=== PATIENT | male | born 1950 | race Caucasian/White ===

== ENCOUNTER 2018-01-15 14:20 | Observation (INO) | payer BC, MEDICARE ==
[2018-01-15 15:08] LABS: #Basophils 0.1 thou/uL (0.0-0.2); #Eosinphils 0.3 thou/uL (0.0-0.7); #Lymphocytes 1.3 thou/uL (1.20-3.40); #Monocytes 0.9 thou/uL (0.11-0.59); #Neutrophils 6.5 thou/uL (1.40-6.50); %Basophils 1.3 % (0.0-1.0); %Eosinophils 3.2 % (0.0-10.0); %Lymphocytes 14.4 % (21.0-51.0); %Monocytes 10.3 % (0.0-10.0); %Neutrophils 70.9 % (42.0-75.0); Hemoglobin 15.2 g/dL (14.0-18.0); Mean Corpuscular HGB CONC 34.4 g/dL (32.0-36.0); Mean Corpuscular Hemoglobin 30.8 pg (27.0-31.0); Mean Corpuscular Volume 89.5 fl (80.0-94.0); Mean Platelet Volume 5.9 fL (7.4-10.4); Platelet Count 278 thou/uL (130-400); RBC Distribution Width 13.2 % (11.5-14.5); Red Blood Cell (RBC) Count 4.95 mill/uL (4.70-6.10); White Blood Cell (WBC) Count 9.2 thou/uL (4.8-10.8)
[2018-01-15 15:21] LABS: Prothrombin Time 23.1 SEC (12.0-14.7)
[2018-01-15 15:23] LABS: Anion Gap 16 mmol/L (10-20); BUN (Urea Nitrogen) 18 mg/dL (8.4-25.7); Calc. Creatinine Clearance 0 mL/min (70-130); Carbon Dioxide 23 mmol/L (23-31); Chloride 105 mmol/L (98-107); Estimated GFR-MDRD Greater than 90; Glucose 75 mg/dL (80-115); Potassium 4.5 mmol/L (3.5-5.1); Sodium 139 mmol/L (136-145)
[2018-01-15 15:27] LABS: CKMB 1.7 ng/mL (0-6.6); Troponin I 0.015 ng/mL (< 0.028)
--- NOTE | 2018-01-15 16:36 | RAD ---
CHEST ONE VIEW: HISTORY: Pain. COMPARISON: 08/29/2012 FINDINGS: Stable sternotomy wires and left-sided transvenous pacemaker. Normal cardiac silhouette. The pulmon mami vessels are normal. The costophrenic angles are clear. No mass. No consolidation. No pneumoth orax or osseous abnormalities. IMPRESSION: No acute cardiopulmonary process. POS: REY
[2018-01-15 18:22] LABS: Troponin I Less than 0.010 ng/mL (< 0.028)
[2018-01-15 19:54] VITALS: BMI 27.7
[2018-01-15 21:32] LABS: Troponin I Less than 0.010 ng/mL (< 0.028)
[2018-01-15] MEDS ORDERED: Guaifenesin DM 100-10/5 ML UDCUP PO PRN (23:37)
[2018-01-15] MEDS ORDERED: Calcium Carbonate 500 MG ChewTAB PO PRN (23:37)
[2018-01-15] MEDS ORDERED: Mag-Al 1200 mg/1200 mg/30 ML UDCUP PO PRN (23:37)
[2018-01-15] MEDS ORDERED: Nitroglycerin 0.4 MG TAB (25 Tab Bottle) PO PRN (23:37)
[2018-01-15] MEDS ORDERED: Acetaminophen 325 MG TAB PO PRN (23:37)
[2018-01-15] MEDS ORDERED: Famotidine 20 MG TAB PO SCH (23:45)
[2018-01-15] MEDS ORDERED: Atorvastatin Calcium 40 MG TAB PO SCH (23:45)
[2018-01-15] MEDS ORDERED: Montelukast Sodium 10 mg Tablet PO SCH (23:45)
[2018-01-15] MEDS ORDERED: Carvedilol 3.125 MG TAB PO SCH (23:45)
[2018-01-16 05:22] LABS: Anion Gap 12 mmol/L (10-20); BUN (Urea Nitrogen) 18 mg/dL (8.4-25.7); Calc. Creatinine Clearance 121 mL/min (70-130); Calcium 8.8 mg/dL (7.8-10.44); Carbon Dioxide 24 mmol/L (23-31); Cardiac Risk 3.1 (Less than 4.5); Chloride 106 mmol/L (98-107); Cholesterol 153 mg/dl (< 200 Desired); Estimated GFR-MDRD Greater than 90; Glucose 82 mg/dL (80-115); HDL Cholesterol 49 mg/dL (>60 Neg Risk); LDL Cholesterol, Calculated 80 mg/dL; Sodium 138 mmol/L (136-145); Triglycerides 120 mg/dL (Less than 150)
--- NOTE | 2018-01-16 05:58 | HP ---
REASON FOR ADMISSION: Chest pain. HISTORY OF PRESENT ILLNESS: Please note I have seen and examined the patient on 01/15/2018. The pat destiny gives history of having chest pain which was more like compression, pain which lasted for nearly two minutes. He sat down, took a tablet of baby aspirin. This happened while he was making pancake s for his children. Currently has no chest pain, palpitation, PND or orthopnea. This pain has not r ecurred again. No complaints of cough or expectoration or fever. Last stress test was more than 30 years ago. PAST MEDICAL/SURGICAL HISTORY: Pacemaker. He has had history of mitral valve endocarditis. History of mechanical aortic valve, [facility], cataract surgery, history of cat scratch fever in 2011, kidn ey stones, right knee surgery, history of rhinoplasty. CURRENT MEDICATIONS: Losartan 25 mg daily, atorvastatin 80 mg p.o. at bedtime, duloxetine 60 mg damián y, carvedilol 3.125 mg twice daily, potassium chloride 20 mEq p.o. daily, Coumadin 3 mg on all days e xcept Fridays, Lasix 40 mg p.o. daily, Singulair 10 mg p.o. daily. ALLERGIES: SULFA. PERSONAL HISTORY: Does not abuse alcohol or drugs. No history of smoking. FAMILY HISTORY: Mother lived up to 94 years. She has had history of heart failure. Father at the age of 66 years from massive [place]. REVIEW OF SYSTEMS: The following complete review of systems was negative, unless otherwise mentioned in the HPI or below: Constitutional: Weight loss or gain, ability to conduct usual activities. Skin: Rash, itching. Eyes: Double vision, pain. ENT/Mouth: Nose bleeding, neck stiffness, pain, tenderness. Cardiovascular: Palpitations, dyspnea on exertion, orthopnea. Respiratory: Shortness of breath, wheezing, cough, hemoptysis, fever or night sweats. Gastrointestinal: Poor appetite, abdominal pain, heartburn, nausea, vomiting, constipation, or diarrhea. Genitourinary: Urgency, frequency, dysuria, nocturia. Musculoskeletal: Pain, swelling. Neurologic/Psychiatric: Anxiety, depression. Allergy/Immunologic: Skin rash, bleeding tendency. PHYSICAL EXAMINATION: GENERAL: The patient is a 68-year-old male who is currently not in any acute distress. VITAL SIGNS: Blood pressure 122/68, pulse 64 per minute, respiratory rate 18 per minute, temperature 97.9 degrees Fahrenheit, saturating 97% on room air. NECK: Supple, no elevated JVD. HEENT: Eyes; extraocular muscles intact. Pupils reacting to light. Oral cavity, mucous membranes a re moist. No exudates or congestion. CARDIOVASCULAR: S1, S2 heard. Regular rhythm. RESPIRATORY: Air entry 2+ bilateral. No rales or rhonchi. ABDOMEN: Soft, bowel sounds heard. No tenderness, rigidity or guarding. EXTREMITIES: No peripheral edema or calf tenderness. VASCULAR SYSTEM: Peripheral pulses 2+ bilateral, no ischemic ulcerations or gangrene. CENTRAL NERVOUS SYSTEM: No gross focal deficits seen. Patient is alert, awake, oriented well. PSYCHIATRIC: The patient's mood is euthymic. No hallucinations or delusions. LABORATORY AND X-RAY FINDINGS: EKG done shows paced rhythm at 64 beats per minute. QRS duration is 102 milliseconds. Chest x-ray done shows no acute cardiopulmonary process. Electrolytes are stable. BUN 18, creatinine 0.8, glucose 75. Troponin x2 is negative. CK-MB 1.7. PT/INR 23 and 2.0. Whit e count of 9, H&H 15 and 44, platelet count 278 with 70% neutrophils, MCV is 89. CLINICAL IMPRESSION AND PLAN: The patient will be under observation on telemetry for atypical chest pain to rule out acute coronary syndrome. We will schedule him for a nuclear stress test today. We will also obtain echo with 2D Doppler for LV function. The patient has no fever and his CBC essentia lly within normal limits and we will continue him on aspirin, Lipitor, Coreg, Lasix, Singulair, Cozaa r, K-Dur, and Cymbalta as before.
[2018-01-16 07:18] LABS: #Eosinphils 0.2 thou/uL (0.0-0.7); #Lymphocytes 1.5 thou/uL (1.20-3.40); #Monocytes 0.7 thou/uL (0.11-0.59); #Neutrophils 4.3 thou/uL (1.40-6.50); %Basophils 0.5 % (0.0-1.0); %Eosinophils 3.3 % (0.0-10.0); %Monocytes 10.3 % (0.0-10.0); %Neutrophils 63.8 % (42.0-75.0); Hemoglobin 14.7 g/dL (14.0-18.0); Mean Corpuscular HGB CONC 33.4 g/dL (32.0-36.0); Mean Corpuscular Hemoglobin 30.8 pg (27.0-31.0); Mean Corpuscular Volume 92.4 fl (80.0-94.0); Mean Platelet Volume 6.1 fL (7.4-10.4); Platelet Count 265 thou/uL (130-400); RBC Distribution Width 13.4 % (11.5-14.5); Red Blood Cell (RBC) Count 4.77 mill/uL (4.70-6.10); White Blood Cell (WBC) Count 6.8 thou/uL (4.8-10.8)
[2018-01-16] MEDS ORDERED: Potassium Chloride 20 MEQ TAB PO SCH (08:00)
[2018-01-16] MEDS ORDERED: Furosemide 40 MG TAB PO SCH (09:00)
[2018-01-16] MEDS ORDERED: DULoxetine 60 MG CAP PO SCH (09:00)
[2018-01-16] MEDS ORDERED: Famotidine 20 MG TAB PO SCH (09:00)
[2018-01-16] MEDS ORDERED: Losartan 25 MG TAB PO SCH (09:00)
[2018-01-16] MEDS ORDERED: Carvedilol 3.125 MG TAB PO SCH (09:00)
[2018-01-16] MEDS ORDERED: ADENOSINE 60 MG/20 ML VIAL ONE (10:49)
--- NOTE | 2018-01-16 12:28 | NM ---
CARDIAC SPECT: HISTORY: A 68-year-old male with chest pain. TECHNIQUE: A myocardial perfusion scan was performed using the single isotope one day protocol with technetium 9 9m sestamibi, and 11 millicuries was injected intravenously for the rest exam, followed by 33 millicu crispin for the stress study. Pharmacologic stress with adenosine was monitored and interpreted by Gloria Chowdhury PA-C. FINDINGS: Homogeneous tracer distribution is seen in the myocardial segments on stress and rest images without fixed or reversible defects. Gated SPECT LVEF: 52%. WALL MOTION EXAM: Normal. IMPRESSION: Normal myocardial perfusion scan. POS: AKASH
[2018-01-16 15:53] VITALS: BP 122/72; TEMP 98
[2018-01-16] MEDS ORDERED: Montelukast Sodium 10 mg Tablet PO SCH (21:00)
[2018-01-16] MEDS ORDERED: Atorvastatin Calcium 40 MG TAB PO SCH (21:00)
--- NOTE | 2018-01-16 22:03 | DIS ---
DATE OF ADMISSION: 01/15/2018 DATE OF DISCHARGE: 01/16/2018 DISCHARGE DIAGNOSES: 1. Chest pain. 2. History of mechanical [facility] aortic valve. HISTORY: This patient is a 68-year-old male with the history of the above-mentioned cardiac issues, who presented to the emergency department after having a very brief episode of substernal chest pain that was not related to significant exertion. The patient had no related symptoms. In the ER, his i nitial workup was negative without significant EKG changes or elevated troponins. HOSPITAL COURSE: The patient was placed in observation and remained on telemetry monitoring. Subseq uent troponin was negative. He had an echocardiogram ordered. He had a nuclear medicine stress test , which was unremarkable with an ejection fraction of 52%. The patient's echocardiogram could not be processed timely after being done. Therefore, Dr. 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 DISPOSITION: The patient will be discharged to home. DISCHARGE MEDICATIONS: He will continue with his usual home medications to include Coumadin 3 mg p.o . daily, potassium 20 mEq every day, Lasix 40 every day, carvedilol 3.125 one p.o. b.i.d., Singulair 10 mg at bedtime, aspirin 81 mg every day, Cymbalta 60 mg every day, atorvastatin 80 mg at bedtime, a nd losartan 25 mg every day. His activity level is as tolerated. He will follow up with Dr. Foy, his PCP; and Dr. Brooks. He sh ould return to the emergency department should he have any problems prior to that time.
== END 2018-01-16 17:56 | disposition home or self-care (01) ==
LOC: SCSER 14:20 → 2SW 16:25
PROVIDERS: ADMIT Emergency Medicine; ATTEND Emergency Medicine
DX: R07.89 Other chest pain (principal); Z95.2 Presence of prosthetic heart valve; Z95.0 Presence of cardiac pacemaker; Z88.2 Allergy status to sulfonamides; Z79.01 Long term (current) use of anticoagulants; Z79.899 Other long term (current) drug therapy
CPT/HCPCS: 36415; 71045; 78452; 80048; 80061; 82553; 84484; 85025; 85610; 93005; 93017; 93306; 94760; A9500; G0378; J0153